=== PATIENT | female | born 1975 | race Caucasian/White ===

== ENCOUNTER 2022-06-10 18:19 | Emergency (ER) | payer OTHER, SELFPAY ==
--- NOTE | ~2022-06-10 | XR_ITS ---
XR ankle RT min 3V DATE: 06/10/2022 19:03 INDICATION: Right anterior ankle pain for one week. No known injury. 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 Prominent plantar calcaneal enthesopathy. No fracture or dislocation, periosteal reaction or bone destruction is detected. 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
[2022-06-10 18:30] VITALS: BP 140/94; PULSE 88; RESP 16; TEMP 36.3; O2SAT 100
[2022-06-10 18:43] VITALS: BP 140/94; PULSE 88; RESP 166; TEMP 36.3; O2SAT 100
[2022-06-10] MEDS: KETOROLAC (*BKC) 60 MG/2 ML VIAL IM (18:48)
--- NOTE | 2022-06-10 19:00 | ED.GENADULT ---
HPI - General Adult General Chief complaint: Extremity Problem,Nontraumatic Stated complaint: Right Foot Pain Source: patient Mode of arrival: ambulatory Limitations: no limitations History of Present Illness HPI narrative: Patient presents for evaluation of right ankle pain for the last week. She cannot identify any recent injury. She states pain is constant, sharp, rated 6 out of 10 at rest. With movement her pain is worse. She does experience a shooting pain in the ankle as well. She denies any paresthesias. She has tried taking ibuprofen without considerable improvement in her symptoms or after. No history of problems with heart rate with this joint in the past. Related Data Home Medications Medication Instructions Recorded Confirmed albuterol 90 mcg/actuation aerosol 90 mcg inhalation Q4H PRN Dyspnea 06/10/22 06/10/22 inhaler cetirizine 10 mg tablet (Zyrtec) 10 mg PO DAILY 06/10/22 06/10/22 levothyroxine 100 mcg capsule 100 mcg PO DAILY 06/10/22 06/10/22 losartan 50 mg tablet 50 mg PO DAILY 06/10/22 06/10/22 Allergies Allergy/AdvReac Type Severity Reaction Status Date / Time No Known Allergies Allergy Verified 06/10/22 18:40 Review of Systems Review of Systems: CONSTITUTIONAL: Denies fever, chills, or sweats. EYES: Denies visual changes, redness, or discharge. ENT: Denies rhinorrhea, congestion, sore throat, or otalgia. CARDIOVASCULAR: Denies chest pain, palpitations, or edema. RESPIRATORY: Denies cough or dyspnea. GASTROINTESTINAL: Denies abdominal pain, nausea, vomiting, or diarrhea. GENITOURINARY: Denies dysuria or hematuria. SKIN: Denies rash or itching. MUSCULOSKELETAL: Reports right ankle pain. Denies back pain or myalgia. NEUROLOGIC: Denies headache, numbness, dizziness, or weakness. PSYCHIATRIC: Denies anxiety or depression. [facility] Past Medical History Medical History (Updated 06/10/22 @ 19:24 by ARDEN Quan, LIZZY) Allergic rhinitis Arthritis Hypertension Tendinitis Thyroid disorder Surgical History Surgical History History of cholecystectomy Family History Family History Mother Family history non-contributory Social History Social History Substance use: never Gender identity (if verbalized by the patient): Female Exam Narrative: GENERAL: Well-appearing, well-nourished, and in no acute distress. HEAD: Normocephalic, atraumatic. EYES: PERRLA and EOMI. ENT: Nares clear, no rhinorrhea or epistaxis. Mucous membranes moist. Oropharynx without tonsillar hypertrophy exudate or other lesions. Bilateral TMs pearly santiago nonbulging NECK: Supple. No adenopathy or masses. No carotid bruits or JVD CHEST: Clear to auscultation. No respiratory distress. No wheezes rales or rhonchi HEART: Regular rate and rhythm. No murmur heard. Normal peripheral pulses. ABDOMEN: Soft, nontender, nondistended, normal active bowel sounds. EXTREMITIES: Full range of motion of the right ankle. Able to dorsi and plantarflex the right foot. Able to wiggle all digits of the right foot. There is no significant swelling in the right ankle or foot. There is mild tenderness just inferior to the right lateral malleolus SKIN: Warm, dry, no rash. NEURO: No focal deficits. Alert and oriented x3. PSYCH: Normal mood and affect. Course Course Emergency Course: This is a 47-year-old female who presented for evaluation of right ankle pain. X-ray showed arthritic changes and tendinitis. She may benefit from shoes with a more support. She can continue to use ibuprofen. Tramadol for breakthrough pain. Follow-up outpatient for further evaluation and treatment and go to the ER for intractable pain. Patient in agreement with plan of care Level of Care: Express Care Visit Vital Signs Vital signs: Vital Signs Temperature 36.3
== END 2022-06-10 19:25 | disposition home or self-care (01) ==
PROVIDERS: Emergency Provider Nurse Practitioner; PCP Family Medicine
DX: M19.071 Primary osteoarthritis, right ankle and foot (principal); M77.9 Enthesopathy, unspecified; M19.90 Unspecified osteoarthritis, unspecified site; I10 Essential (primary) hypertension; E07.9 Disorder of thyroid, unspecified
CPT/HCPCS: 73610; 96372; 99213; G0463; J1885

== ENCOUNTER 2022-07-20 14:39 | Emergency (ER) | payer OTHER, SELFPAY ==
[2022-07-20 14:45] VITALS: BP 119/74; PULSE 105; RESP 14; TEMP 36.6; O2SAT 99
--- NOTE | 2022-07-20 14:50 | ED.FEMALEGU ---
HPI - Female Genitourinary General Chief complaint: Urogenital-Female Stated complaint: Poss uti Time Seen by Provider: 07/20/22 14:58 Source: patient and RN notes reviewed Mode of arrival: ambulatory Limitations: no limitations History of Present Illness HPI Narrative: 47-year-old female presents to the [facility] with concerns over a UTI. patient reports and of urine and burning. Has no concern for an STD. Also reports lower back pain and lower abdominal cramping. Denies any vaginal discharge. denies any vaginal rash. Denies any fevers. No CVA tenderness. No nausea vomiting or diarrhea. Related Data Home Medications Medication Instructions Recorded Confirmed albuterol 90 mcg/actuation aerosol 90 mcg inhalation Q4H PRN Dyspnea 06/10/22 07/20/22 inhaler cetirizine 10 mg tablet (Zyrtec) 10 mg PO DAILY 06/10/22 07/20/22 levothyroxine 100 mcg capsule 100 mcg PO DAILY 06/10/22 07/20/22 losartan 50 mg tablet 50 mg PO BID 06/10/22 07/20/22 hydrochlorothiazide 12.5 mg tablet 12.5 mg PO DAILY 07/20/22 07/20/22 Allergies Allergy/AdvReac Type Severity Reaction Status Date / Time No Known Allergies Allergy Verified 07/20/22 14:57 Review of Systems Review of Systems: All systems reviewed & are unremarkable except as noted in HPI and below Constitutional: Constitutional: Reports no additional constitutional complaints, Denies chills and Denies fever(s) Eyes: Eyes: Reports no additional eye complaints ENT: Reports system reviewed and no additional complaints, except as documented Cardiovascular: Cardiovascular: Reports no additional cardiovascular complaints Respiratory: Respiratory: Reports no additional respiratory complaints Gastrointestinal: Gastrointestinal: Reports no additional gastrointestinal complaints Genitourinary: Genitourinary: Reports as per HPI Musculoskeletal: Musculoskeletal: Reports no additional musculoskeletal complaints Integumentary/Breasts: Skin/Breast: Reports system reviewed and no additional complaints, except as docu Neurologic: Reports system reviewed and no additional complaints, except as documented Psychiatric: Psychiatric: Reports no additional psychiatric complaints Allergic/Immunologic: Allergic/Immunologic: Reports no additional allergic/immunologic complaints PMFSH Past Medical History Medical History Allergic rhinitis Arthritis Hypertension Tendinitis Thyroid disorder Surgical History Surgical History History of cholecystectomy Family History Family History Mother Family history non-contributory Social History Social History Substance use: never Gender identity (if verbalized by the patient): Female Comments At the time of my signature, I reviewed and agree with the nursing past medical, surgical, social, and family history. There is no relevant family history pertinent to the patient complaint. Exam Const: General: healthy appearing, no acute distress, alert and well nourished Nutritional Appearance: well nourished Orientation/consciousness: patient oriented x3 Limitations: no limitations HENMT: Head: normal to inspection Ears: external ears normal Eyes: General: appearance normal, both eyes and all related structures Conjunctivae: conjunctivae normal Pupils: Equal, round and reactive pupils present Neck: Neck: normal visual inspection, no lymphadenopathy and no meningeal signs Chest: Chest palpation & inspection: normal inspection of the chest Resp: Effort & Inspection: normal respiratory effort and no use of accessory muscles Auscultation: clear to auscultation bilaterally, no crackles, no rales, no rhonchi and no wheezes Cardio: Rate: regular rate Rhythm: regular rhythm Skin: General skin exam: normal color Rashes:
== END 2022-07-20 15:05 | disposition home or self-care (01) ==
PROVIDERS: Emergency Provider Nurse Practitioner; PCP Family Medicine
DX: R30.0 Dysuria (principal); M19.90 Unspecified osteoarthritis, unspecified site; I10 Essential (primary) hypertension; E07.9 Disorder of thyroid, unspecified
CPT/HCPCS: 81003; 87086; 99213; G0463

== ENCOUNTER 2024-05-05 12:02 | Emergency (ER) | payer OTHER, SELFPAY ==
[2024-05-05 12:08] VITALS: BP 129/95; PULSE 95; RESP 20; TEMP 36.6; O2SAT 98
[2024-05-05 12:22] VITALS: BP 129/95; PULSE 95; RESP 20; TEMP 36.6; O2SAT 98
--- NOTE | 2024-05-05 12:36 | ED.ABDPAIN ---
HPI - Abdominal Pain General Chief Complaint: Abdominal Pain Stated Complaint: sharp pains right side/back pain History of Present Illness HPI narrative: patient presents with generalized abdominal pain. Patient states she has a history of diverticulitis and has not been hospitalized for same in the past. Patient denies any blood or mucus in her stools. Patient states she feels if she could have a bowel movement but is unable to have 1. Patient reports bowel movement yesterday the day before with straining. Related Data Home Medications Medication Instructions Recorded Confirmed albuterol 90 mcg/actuation aerosol 90 mcg inhalation Q4H PRN Dyspnea 06/10/22 07/20/22 inhaler cetirizine 10 mg tablet (Zyrtec) 10 mg PO DAILY 06/10/22 07/20/22 levothyroxine 100 mcg capsule 100 mcg PO DAILY 06/10/22 05/05/24 losartan 50 mg tablet 50 mg PO BID 06/10/22 05/05/24 hydrochlorothiazide 12.5 mg tablet 12.5 mg PO DAILY 07/20/22 05/05/24 famotidine 20 mg tablet 20 mg PO TID 05/05/24 05/05/24 loratadine 10 mg tablet 10 mg PO DAILY 05/05/24 05/05/24 mesalamine 1.2 gram tablet,delayed 1.2 g PO BID 05/05/24 05/05/24 release metoclopramide HCl 10 mg tablet 10 mg PO BID 05/05/24 05/05/24 sennosides 8.6 mg-docusate sodium 50 tablet PO PRN PRN Constipation 05/05/24 05/05/24 50 mg tablet (Stimulant Laxative Plus) Allergies Allergy/AdvReac Type Severity Reaction Status Date / Time No Known Allergies Allergy Verified 07/20/22 14:57 Review of Systems Review of Systems: CONSTITUTIONAL: Denies fever, chills, or sweats. EYES: Denies visual changes, redness, or discharge. ENT: Denies rhinorrhea, congestion, sore throat, or otalgia. CARDIOVASCULAR: Denies chest pain, palpitations, or edema. RESPIRATORY: Denies cough or dyspnea. GASTROINTESTINAL: Denies abdominal pain, nausea, vomiting, or diarrhea. GENITOURINARY: Denies dysuria or hematuria. SKIN: Denies rash or itching. MUSCULOSKELETAL: Denies back pain, joint pain, or myalgia. NEUROLOGIC: Denies headache, numbness, or weakness. PSYCHIATRIC: Denies anxiety or depression. [facility], [facility] Past Medical History Medical History Allergic rhinitis Arthritis Hypertension Tendinitis Thyroid disorder Surgical History Surgical History History of cholecystectomy Family History Family History Mother Family history non-contributory Social History Social History Substance use: never Gender identity (if verbalized by the patient): Female Comments At time of signature, agree with nursing past medical, surgical, social and family history. There is no relevant family history pertinent to the presenting complaint Exam Narrative: GENERAL: Well-appearing, well-nourished, and in no acute distress. HEAD: Normocephalic, atraumatic. EYES: PERRLA and EOMI. ENT: Nares clear, no rhinorrhea or epistaxis. Mucous membranes moist. NECK: Supple. CHEST: Clear to auscultation. No respiratory distress. HEART: Regular rate and rhythm. No murmur heard. Normal peripheral pulses. ABDOMEN: Soft, generalized lower abdominal discomfort very tender umbilical area radiating to the right lower quadrant. Hypoactive active bowel sounds. EXTREMITIES: Normal range of motion. No edema. SKIN: Warm, dry, no rash. NEURO: No focal deficits. Alert and oriented x3. Fauzia Coma Scale Eye Opening: Spontaneous 4 [place] Coma Scale Motor: Obeys Commands 6 [place] Coma Scale Verbal: Oriented 5 Fauzia Coma Scale Total 15 Course Course Level of Care: Express Care Visit Vital Signs Vital signs: Vital Signs Temperature 36.6 C 05/05/24 12:08 Pulse Rate 95 05/05/24 12:08 Respiratory Rate 20 05/05/24 12:08 Blood Pressure 129/95 H 05/05/24 12:08 Pulse Oximetry 98 05/05/24 12:08 Oxyg
== END 2024-05-05 12:39 | disposition short-term general hospital (02) ==
PROVIDERS: Emergency Provider Nurse Practitioner Family; PCP Family Medicine
DX: R10.30 Lower abdominal pain, unspecified (principal); R10.33 Periumbilical pain; R10.31 Right lower quadrant pain; M19.90 Unspecified osteoarthritis, unspecified site; I10 Essential (primary) hypertension
CPT/HCPCS: 99211; 99212; G0463